=== PATIENT | male | born 1950 | race Caucasian/White ===

== ENCOUNTER 2020-10-02 05:40 | Day surgery (SDC) | payer MEDICARE, OTHER ==
--- NOTE | 2020-09-20 15:02 | NUR ---
DOS:10/02/2020 PATIENT HAS STAIRS WITH 2 STEPS TO ENTER HOME HAS WALKING SHOWER WITH BEENCH TO SIT ON PT WILL NEED A WALKER PT WILL MAKE SURE HE HAS TRANSPORTATION TO AND FROM PHYSICAL THERAPY AND APPOINTMENTS
[~2020-10-02] VITALS: Ht 180.3 cm; Wt 103.0 kg
[~2020-10-02 05:40] MED LIST: ADULT WAL-100 MG/5 M PO; AMLODIPINE BESYL5 MG PO; ASPIR-LOW81 MG PO; CHLORTHALIDONE25 MG PO; FISH OIL 1,0001 EAC3 PO; LIPITOR40 MG PO; NORCO 7.5-3251 EACH PO; OSTERA TABLET1 EACH PO; PREDNISONE20 MG PO; VENTOLIN HFA18 GM INH
[2020-10-02] MEDS ORDERED: IRON 100-VITAM1 EACH PO (06:04)
[2020-10-02] MEDS ORDERED: ASPIRIN EC325 MG PO (09:09)
[2020-10-02] MEDS ORDERED: STOOL SOFTENER1 EAC4 PO (09:10)
[2020-10-02] MEDS ORDERED: GABAPENTIN300 MG PO (09:10)
[2020-10-02] MEDS ORDERED: HYDROMORPHONE HC4 MG PO (09:10)
[2020-10-02] MEDS ORDERED: CELECOXIB200 MG PO (09:10)
--- NOTE | 2020-10-02 09:22 | NUR ---
PT ALERT, ORIENTED AND I COULD SENSE HE WAS SOMEWHAT ANXIOUS. HAD JUST A MOMENT, OR STAFF WAITING OUTSIDE RM. GAVE ENCOURAGEMENT AND BLESSING. WILL FOLLOW NEEDED
--- NOTE | 2020-10-02 09:43 | NUR ---
10/02/20 0943 Sheets,Mitzi 0906 PT ARRIVED TO PACU DROWSY AND VSS. PT REOREINTED TO PACU. PT DENIES PAIN AND NAUSEA. 0913 O2 REMOVED, PT TALKING TO RN. VSS.
--- NOTE | 2020-10-02 09:56 | NUR ---
PATIENT TO DAYSURGERY FROM PACU. BEDSIDE REPORT FROM HERNAN CRISOSTOMO. PATIENT AWAKE AND ORIENTED. REPORTS NO PAIN, OR NAUSEA. DRESSING TO LEFT KNEE C/D/I. STRONG PEDAL PULSE. FOOT PUMPS ON, AND CRYO IN PLACE. SKIN WARM AND DRY. PATIENT ABLE TO LIFT LEG OFF OF BED. PROVIDED ICE WATER AND SNACKS. CALL LIGHT IN REACH. AT BEDSIDE.
--- NOTE | 2020-10-02 10:15 | NUR ---
TXA ADMINISTERING. PATIENT TOLERATING SNACK WELL. NO OTHER NEEDS AT THIS TIME.
--- NOTE | 2020-10-02 11:00 | NUR ---
PATIENT CALL TO GET UP TO BATHROOM TO VOID. TXA COMPLETE. PATIENT SALINE LOCKED. STANDING UP AT BEDSIDE PATIENT DENIES ANY PAIN OR DIZZINESS. AMBULATED WITH WALKER TO BATHROOM, STEADY ON FEET. VOIDED 300 ML OF URINE. PATIENT SITTING UP IN BED, MEAL TRAY ARRIVED. DRESSING TO LEFT KNEE C/D/I. STRONG PEDAL PULSE. NO OTHER NEEDS AT THIS TIME.
--- NOTE | 2020-10-02 12:07 | NUR ---
PT ALERT AND ORIENTED. COMFORTABLE AND SITTNG UP IN BED EATING SNACK.TRICIA WELL. AT THE BEDSIDE. DRESSING C/D/I. STRONG PEDAL PULSES. PHYSICAL THERAPY NOTIFIED. PT DRESSED WITH ASSIST. PT CONTS TO DENY PAIN AND NAUSEA
[2020-10-02] MEDS ORDERED: XARELTO1 EACH PO (14:19)
--- NOTE | 2020-10-02 14:23 | NUR ---
NOTIFIED DR. CERVANTES THAT PATIENT IS READY TO DISCHARGE, AND MEETING ALL CRITERIA. HAS WORKED WITH PHYSICAL THERAPY AND JULISSA VERBALIZED PATIENT SAFE AND READY TO DISCHARGE HOME. DR. CERVANTES VERBALIZED OKAY TO PUT IN DISCHARGE ORDER. DISCUSSED NO XARELTO ORDER. DR. CERVANTES VERBALIZED ORDER FOR 10 MG XARELTO ONE DAILY FOR TEN DAYS. CALLED IN ORDER TO [facility]. PATIENT IV WAS REMOVED BEFORE RECIEVING SECOND DOSE OF ANCEF, DR. CERVANTES VERBALIZED OKAY, AND DENIED ANY NEED FOR FURTHER ANTIBIOTICS TODAY.
--- NOTE | 2020-10-02 14:30 | NUR ---
PROVIDED PATIENT WITH DISCHARGE EDUCATION, ANSWERED QUESTIONS AND CONCERNS. PATIENT MET CRITERIA. PROVIDED WHEELCHAIR RIDE TO FRONT, DRIVING POV. PATIENT TRANSFERED INTO CAR WELL, TOLERATING ACTIVITY.
--- NOTE | 2020-10-02 15:02 | OR ---
[facility] [address] [place], [place] [address] Signed DATE OF OPERATION: 10/02/2020 SURGEON: Prateek Huber MD PREOPERATIVE DIAGNOSIS: Degenerative joint disease, left knee, severe. POSTOPERATIVE DIAGNOSIS: Degenerative joint disease, left knee, severe. PROCEDURE PERFORMED: Left total knee arthroplasty with Diaz. MANAGER KNOWLEDGE: DAVID Solano. Alexandria was present and critical for all portions of procedure. ANESTHESIA: Spinal. BLOOD LOSS: 150 mL. IMPLANTS: Aniceto Triathlon size 5, 9 mm polyethylene and 38 mm patella. BRIEF HISTORY: Luis is a 69-year-old gentleman with progressive worsening of osteoarthritis. Nonoperative treatment who had failed to control his symptoms. Risks and benefits of operative treatment were discussed to him and he elected to proceed. DESCRIPTION OF PROCEDURE: Once consent was obtained, he was taken to the operating room. After adequate anesthesia, he was placed on operating room table, all downside pressure points were well padded and hip bump were placed. The leg was then prepped and draped in a standard sterile fashion. No tourniquet was placed. The knee was approached through an anterior incision, carried through skin and subcutaneous tissue. Subvastus approach was undertaken and carried through the capsule. The patella was medialized laterally. The infrapatellar fat pad was excised and MCL was elevated with a sleeve around the posteromedial corner. All bleeders were cauterized as we went. lateral Electronically Signed By: PRATEEK HUBER MD 10/02/20 1502 PATIENT NAME: LUIS SANCHEZ OPERATIVE REPORT DATE OF : 52 REPORT #: [id number] PHYSICIAN: PRATEEK HUBER MD PCP: LUISANA HELLER MD REPORT IS CONFIDENTIAL AND NOT TO BE RELEASED WITHOUT AUTHORIZATION [facility] [address], [place] [address] Signed meniscus was transected. The medial meniscus was absent. The ACL was transected. The knee was flexed and the checkpoints for the tibia and femur were placed for the Diaz system. The two Schanz pins were placed in the medial femoral condyle for the femoral tracker. Tibial tracker was done percutaneously one hand's handbreadth below the tuberosity. The leg was then registered with the computer. The fine anatomic points of the knee were then registered with the computer. The plan was then reviewed. The ligamentous balance was undertaken and no changes were made to preoperative plan. The robot was then brought in and secured. The straight cuts were made first followed by the angle cuts. Care was taken to protect the soft tissue throughout. The bony pieces were then removed and osteophytes were removed. The tibial component was then placed and the femoral component was placed. The knee was then extended and he went to full extension with no trouble. The osteophytes off the posterior femur had been removed previously. The varus-valgus balance was accurate. The patella was cut-sized and drilled for a 38 patella. The distal femoral drill holes were made and the tibia was finished using the keel punch. The bone was somewhat soft, so we elected with a hybrid prosthesis. The bone was pulse-lavaged packed with a dry Ray-Natasha. Cement was mixed and reached to a proper consistency, it was placed on the tibia and the patella. Tibia was impacted in position first followed by the polyethylene, all excess was removed. The femur was then impacted in position, followed by the patella. All excess cement was removed from the patella. The cement was allowed to harden. Once hardened sufficiently, the knee was flexed and the remaining overflow was removed using osteotomes. The periarticular soft tissues were injected with 100 mL of ropivacaine and Toradol mixture. The range of motion was then checked one more time and the computer rays were removed from the femur and tibia. The checkpoints were removed as well. The On-Q pain pump was placed percutaneously into the adductor canal. The arthrotomy was then closed using #2 Stratafix, subcutaneous tissue with #1 Stratafix, and skin with spencer. The wound was dressed with Acticoat dressing, ABD, and Marcus wrap. He tolerated the procedure well. All sponge, needle, and instrument counts were correct. Prateek Huber MD BA/MODL /[id number] Copies: Electronically Signed By: PRATEEK HUBER MD 10/02/20 1502 PATIENT NAME: LUIS SANCHEZ OPERATIVE REPORT DATE OF : 52 REPORT #: [id number] PHYSICIAN: PRATEEK HUBER MD PCP: LUISANA HELLER MD REPORT IS CONFIDENTIAL AND NOT TO BE RELEASED WITHOUT AUTHORIZATION [address] [address] Signed ~ Electronically Signed By: PRATEEK HUBER MD 10/02/20 1502 PATIENT NAME: LUIS SANCHEZ OPERATIVE REPORT DATE OF : 52 REPORT #: [id number] PHYSICIAN: PRATEEK HUBER MD PCP: LUISANA HELLER MD REPORT IS CONFIDENTIAL AND NOT TO BE RELEASED WITHOUT AUTHORIZATION
== END 2020-10-02 14:30 | disposition home or self-care (01) ==
LOC: DS 05:40
PROVIDERS: ATTEND Specialist
DX: M17.12 Unilateral primary osteoarthritis, left knee (principal); G89.18 Other acute postprocedural pain
CPT/HCPCS: 01402; 64447; 76942; 97110; 97161; C1713; C1776; J0171; J0690; J1100; J1885; J2001; J2250; J2405; J2704; J2795; J3010; J7121